=== PATIENT | female | born 1960 | race Caucasian/White ===

== ENCOUNTER 2017-09-10 15:16 | Emergency (ER) | payer OTHER, SELFPAY ==
[2017-09-10 15:17] VITALS: PULSE 95; RESP 14; TEMP 37.6; O2SAT 98; BMI 33.3
--- NOTE | 2017-09-10 15:33 | CT_ITS ---
STUDY: CT ABDOMEN AND PELVIS WITH CONTRAST REASON FOR EXAM: Female, 57 years old. Left lower quadrant pain. Pelvic pain. RADIATION DOSAGE (If Supplied By Facility): CTDIvol = ( 14.47 ) mGy, DLP = ( 1161.54 ) mGycm TECHNIQUE: Transaxial images were obtained from the dome of the diaphragm to the symphysis pubis without oral contrast. 100 ml of Isovue 300 contrast was administered. Sagittal and coronal images were reconstructed. Individualized dose optimization techniques were used for this CT. COMPARISON: None. FINDINGS: The visualized lung bases are unremarkable. The visualized portions of the heart are within normal limits. There is hepatomegaly with diffuse hepatic enlargement. There is diffuse fatty infiltration liver without focal mass. Normal gallbladder and extrahepatic biliary system. Normal spleen. Normal pancreas. Normal bilateral adrenal glands. Normal right kidney. Normal left kidney. Normal ureters. There is a small type I hiatal hernia. The distal stomach is unremarkable. Normal small intestine. There are scattered colonic diverticuli. There is wall thickening and stranding of the distal descending and proximal sigmoid colon, consistent with uncomplicated diverticulitis. The appendix is visualized and appears normal. Normal abdominal aorta. Normal inferior vena cava. Normal retroperitoneum. Urinary bladder is incompletely distended but grossly unremarkable. Normal vaginal cuff. There are retained ovaries along both pelvic side boogie without cyst or other abnormality. There is no pelvic lymphadenopathy. No free air or free fluid is seen within the peritoneal cavity. Normal abdominal wall. Minimal degenerative disc disease of the lower lumbar spine. CT/Abdomen/Pelvis W IV Cont ONLY IMPRESSION: 1. Distal descending and proximal sigmoid diverticulitis without complication. 2. Type I hiatal hernia. 3. Enlarged fatty infiltrated liver. 4. Status post hysterectomy. The retained ovaries appear normal. Electronically Signed: Huy Matute DO at 16:49 EDT Tel [phone], Service support ,
--- NOTE | 2017-09-10 15:40 | ED.VISSUMM ---
- ER Visit Summary Date of Service: 09/10/17 Chief Complaint: Left-sided abdominal pain History of Present Illness: The patient is a 57 F past medical history of colonic polyps. Prior hysterectomy she is unsure if her ovaries are still and/or they removed also. Patient states around 2 AM this morning she is awoke from sleep with left-sided abdominal pain more so in the left lower quadrant but also in the upper quadrant. She also complains of urinary frequency but no dysuria no hematuria and the urine is not cloudy nor any strong odor. No history of kidney stones. Denies her having pain like this before. No trauma. No fever. Denies nausea, vomiting, diarrhea, constipation. No back pain. Recently normal bowel movements. No melena. Physical Examination: Well-appearing middle-age female. Vital signs are stable. She is afebrile. H EENT exam is unremarkable. Neck nontender no lymphadenopathy. Lungs clear to auscultation bilaterally. Heart regular rate and rhythm no murmur. Abdomen soft. Nondistended. Normal bowel sounds. No peritoneal signs. No hernias. No masses. She is tender both the left upper and left lower quadrants. Moving all 4 extremities. Neurovascular intact. Back nontender. Neurologically awake and alert with no focal motor deficits. Test Results: White count is 8. Hemoglobin 14. Electrolytes unremarkable. UA normal. CT abdomen pelvis with IV contrast shows left sigmoid diverticulitis. Otherwise unremarkable. No perforation. No abscess. No free air. Read by the radiologist and reviewed by me. Emergency Department Course and Treatment: At the current time patient does not want any pain medication. She will be worked up for left-sided abdominal plane including a CAT scan. Treatment Plan: Repeat exam patient is doing well at 1659. Is comfortable being discharged to home. She has no primary care physician will be referred to a physician in the [facility] where she lives. She will be treated with 10 days of Cipro twice daily and Flagyl 3 times daily. She did not want anything for pain. Disposition: Discharge Impression: Acute left-sided abdominal pain secondary to sigmoid diverticulitis. This note was generated with [employer] dictation software. It may contain incorrect words, spelling, and punctuation that were not noted in review of the chart prior to signing ED Disposition - Plan for ED Patient: Chief Complaint: Abd Pain Referrals: NOT,DEFINED [NON-STAFF] -
[2017-09-10 15:52] LABS: Bacteria 0 SEEN /hpf (None Seen); Mucous, Urine 0 SEEN /hpf (<or=2+); Red Blood Cells-Urine 0 SEEN /hpf (0-5); Squamous Epithelial Cells - UA 0 SEEN /hpf (5-10); White Blood Cells 0 SEEN /hpf (0-5)
[2017-09-10 16:07] LABS: Absolute Lymphocyte Count 1.05 X10^3/ul (0.83-4.51); Absolute Neutrophil Count 6.8 X10^3/uL (2.0-7.7); Eosinophil# 0.05 X10^3/uL; Eosinophils% 0.6 % (0-5); Hematocrit 44.1 % (37-47); Hemoglobin 14.9 g/dl (12.0-15.0); Lymphocyte # 1.05 X10^3/ul (4.0); Lymphocyte % 12.6 % (19-41); Mean Corp Hgb Conc 33.8 g/gl (32-36); Mean Corpuscular Hgb 30.8 pg (27.0-32.0); Mean Corpuscular Volume 91.3 fL (81-99); Mean Platelet Vol. 10.5 fl (6.2-12.0); Monocyte# 0.46 X10^3/uL; Monocyte% 5.5 % (0-10); Neutrophil # 6.77 X10^3/uL (2.7-7.7); Neutrophil % 81.2 % (47-70); Platelet Count 199 K/mm3 (150-450); RBC Distribution Width CV 12.3 % (11.6-14.6); RBC Distribution Width SD 41.3 fl (35.1-43.9); Red Blood Count 4.83 M/mm3 (4.2-5.4); White Blood Count 8.3 K/mm3 (4.4-11.0)
[2017-09-10 16:09] LABS: POSITIVE COUNT NO; POSITIVE DIFFERENTIAL NO; POSITIVE MORPHOLOGY NO
[2017-09-10 16:11] LABS: Anion Gap 5 (5-15); BUN 10 mg/dL (7-18); Calcium,Total 9.3 mg/dL (8.5-10.1); Chloride 104 mmol/L (98-107); Creatinine, Serum 0.72 mg/dL (0.55-1.02); EST Glomerular Filtration Rate 89 mL/min (>60); Est Glom Filt Rate - Afr Amer 108 mL/min (>60); Estimated Creatinine Clearance 74.44 ml/min; Glucose 103 mg/dL (74-106); Potassium 3.5 mmol/L (3.5-5.1); Sodium Level 139 mmol/L (136-145)
[2017-09-10 16:21] LABS: Color, Urine Straw (Yellow); Glucose, Dipstick Normal (Normal); Ketone-Dipstick Negative (Negative); Leukocyte Esterase-Dipstick Negative /ul (Negative); Nitrite-Dipstick Negative (Negative); Occult Blood-Urine Negative /ul (Negative); Protein-Dipstick Negative (Negative); Specific Gravity, Urine 1.005 (1.002-1.030); Urine Bilirubin Dipstick Negative (Negative); Urine Clarity Clear (Clear); Urine Urobilinogen Normal (Normal); Urine pH 6.5 (5.0 - 8.0)
--- NOTE | 2017-09-10 17:04 | ED.DEP ---
ED Disposition - Plan for ED Patient: Disposition: Home or Assisted Living Chief Complaint: Abd Pain Instructions: ED Diverticulitis Prescriptions: Metronidazole [Flagyl] 500 mg PO Q8H #30 cap Ciprofloxacin [Cipro] 500 mg PO BID #20 tab Referrals: NOT,DEFINED [NON-STAFF] - As soon as possible Additional Instructions: Call follow-up with a physician in your area. You may want to try Dr. Robin Colindres's office. Cipro twice a day and Flagyl 3 times a day to treat the sigmoid diverticulitis. Follow-up to ensure you are getting better sometimes any. Return to this or another ER if you are feeling worse, developing a fever or have worsening pain.
[2017-09-10 17:08] VITALS: BP 148/99; PULSE 94; RESP 18; O2SAT 98
[2017-09-10] MEDS: metroNIDAZOLE 500 MG Tablet PO (17:09)
[2017-09-10] MEDS: Ciprofloxacin 250 MG Tablet 500 MG PO (17:14)
== END 2017-09-10 17:16 | disposition home or self-care (01) ==
PROVIDERS: Emergency Provider Emergency Medicine
DX: K57.32 Diverticulitis of large intestine without perforation or abscess without bleeding (principal); R10.32 Left lower quadrant pain; R10.12 Left upper quadrant pain; R35.0 Frequency of micturition; Z86.010 Personal history of colon polyps; Z90.710 Acquired absence of both cervix and uterus
CPT/HCPCS: 74177; 80048; 81001; 85025; 99283; Q9967